=== PATIENT | female | born 2000 | race Caucasian/White ===

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

== ENCOUNTER → 2024-02-09 | Outpatient (CLI) | payer OTHER | END | disposition home or self-care (01) | LOC: LAB 10:40 → LAB SHORT 10:40 | DX: Z34.83 Encounter for supervision of other normal pregnancy, third trimester (principal); Z3A.36 36 weeks gestation of pregnancy | CPT/HCPCS: 87081; 87150 ==

== ENCOUNTER 2024-02-22 17:25 | Inpatient (IN) | payer OTHER ==
[~2024-02-22] VITALS: Ht 157.5 cm; Wt 68.0 kg
[2024-02-22] VITALS (10 sets, daily range): BP systolic 122–152; BP diastolic 66–116
[2024-02-22] MEDS ORDERED: Misoprostol 200 MCG Tab PR PRN ×2 (17:50→19:25)
[2024-02-22] MEDS ORDERED: Tranexamic Acid 100 ML IV SCH (17:50)
[2024-02-22] MEDS ORDERED: Methylergonovine Maleate 0.2MG / ML 1ML Amp IM PRN ×2 (17:50→19:35)
[2024-02-22] MEDS ORDERED: Oxytocin 10 Unit / ML Vial IM PRN (17:50)
[2024-02-22] MEDS ORDERED: Acetaminophen 500 MG Tab PO PRN (17:50)
[2024-02-22] MEDS ORDERED: Calcium Carbonate 500 MG Tab Chew PO PRN (17:50)
[2024-02-22] MEDS ORDERED: Misoprostol 200 MCG Tab BC PRN (17:50)
[2024-02-22] MEDS ORDERED: OXYTOCIN/RINGER'S LACTATE 500 ML IV PRN (17:50)
[2024-02-22] MEDS ORDERED: Lactated Ringer's 1,000 ML IV PRN (17:50)
[2024-02-22] MEDS ORDERED: Ondansetron HCl 2 MG / ML 2ML Vial IV PRN (17:50)
[2024-02-22] MEDS ORDERED: Carboprost Tromethamine 250 MCG/ML 1ML Amp IM PRN ×2 (17:50→19:30)
[2024-02-22] MEDS ORDERED: Lactated Ringer's 1,000 ML IV ONE (17:50)
[2024-02-22] MEDS ORDERED: OXYTOCIN/RINGER'S LACTATE 500 ML IV ONE (17:50)
[2024-02-22] MEDS ORDERED: Methylergonovine Maleate 0.2MG / ML 1ML Amp ONE (17:51)
[2024-02-22] MEDS ORDERED: PRENATAL TABLE1 EAC2 PO (18:16)
[2024-02-22] MEDS ORDERED: SERT25 PO (18:17)
[2024-02-22 18:20] LABS: BASOPHILS ABSOLUTE AUTO 0.02 K/mm3 (0.00-0.23); BASOPHILS PERCENT AUTO 0 % (0-2); EOSINOPHILS PERCENT AUTO 0 % (0-6); Hematocrit 32.8 % (33.0-51.0); Hemoglobin 10.9 g/dL (11.5-16.0); IMMATURE GRAN PERCENT AUTO 1 % (0-1); LYMPHOCYTES ABSOLUTE AUTO 1.12 K/mm3 (0.84-5.20); LYMPHOCYTES PERCENT AUTO 7 % (21-46); MONOCYTES ABSOLUTE AUTO 0.59 K/mm3 (0.16-1.47); MONOCYTES PERCENT AUTO 4 % (4-13); Mean Corpuscular HGB 28.6 pg (26.0-34.0); Mean Corpuscular HGB Conc 33.2 g/dL (31.5-36.5); Mean Corpuscular Volume 86 fL (80-100); NEUTROPHILS ABSOLUTE AUTO 13.54 K/mm3 (1.96-9.15); NEUTROPHILS PERCENT AUTO 88 % (41-73); Platelet Count 189 K/mm3 (150-400); RDW Coefficient Variation 13.5 % (11.7-14.2); RDW Standard Deviation 41.3 fL (35.1-46.3); Red Blood Cell Count 3.81 M/mm3 (3.80-5.20); White Blood Cell Count 15.47 K/mm3 (4.00-11.30)
[2024-02-22] MEDS ORDERED: Acetaminophen 325 MG TABLET PO PRN (19:25)
[2024-02-22] MEDS ORDERED: OxyCODONE 5 mg/Acetamin 325 mg TABLET PO PRN (19:25)
[2024-02-22] MEDS ORDERED: Benzocaine Topical Anesthetic Spray 60GM TOP PRN (19:30)
[2024-02-22] MEDS ORDERED: Witch Hazel/Glycerin PADS TOP PRN (19:30)
[2024-02-22] MEDS ORDERED: Ibuprofen 400 MG Tab PO PRN (19:30)
[2024-02-22] MEDS ORDERED: Lactated Ringer's 1,000 ML IV SCH (19:30)
[2024-02-22] MEDS ORDERED: Docusate Sodium 100 MG Cap PO PRN (19:30)
[2024-02-22] MEDS ORDERED: FLU VACC TS2024-25(6MOS UP)/PF 45 MCG/0.5 ML SYRINGE IM ONE (19:30)
[2024-02-22] MEDS ORDERED: Misoprostol 100 MCG Tab PO PRN (19:35)
[2024-02-22] MEDS ORDERED: Ketorolac Tromethamine 30mg Vial IV PRN (19:50)
[2024-02-22] MEDS ORDERED: Bupivacaine 0.5% HCl 5 MG/ML 30MLVIAL XX ONE (22:12)
[2024-02-22] MEDS ORDERED: FERSU300 PO (22:26)
[2024-02-23 00:08] VITALS: BP 116/68
[2024-02-23 04:00] VITALS: BP 127/83
[2024-02-23 05:38] LABS: BASOPHILS ABSOLUTE AUTO 0.02 K/mm3 (0.00-0.23); BASOPHILS PERCENT AUTO 0 % (0-2); EOSINOPHILS PERCENT AUTO 0 % (0-6); Hematocrit 30.4 % (33.0-51.0); IMMATURE GRAN ABSOLUTE AUTO 0.09 K/mm3 (0.00-0.10); IMMATURE GRAN PERCENT AUTO 1 % (0-1); LYMPHOCYTES ABSOLUTE AUTO 1.33 K/mm3 (0.84-5.20); LYMPHOCYTES PERCENT AUTO 10 % (21-46); MONOCYTES ABSOLUTE AUTO 1.09 K/mm3 (0.16-1.47); MONOCYTES PERCENT AUTO 8 % (4-13); Mean Corpuscular HGB 28.2 pg (26.0-34.0); Mean Corpuscular HGB Conc 32.9 g/dL (31.5-36.5); Mean Corpuscular Volume 86 fL (80-100); Mean Platelet Volume 12.1 fL (9.1-12.4); NEUTROPHILS ABSOLUTE AUTO 11.08 K/mm3 (1.96-9.15); NEUTROPHILS PERCENT AUTO 81 % (41-73); Platelet Count 209 K/mm3 (150-400); RDW Coefficient Variation 13.4 % (11.7-14.2); RDW Standard Deviation 41.3 fL (35.1-46.3); Red Blood Cell Count 3.55 M/mm3 (3.80-5.20); White Blood Cell Count 13.61 K/mm3 (4.00-11.30)
[2024-02-23 08:19] VITALS: BP 124/85
--- NOTE | 2024-02-23 08:25 | NUR ---
REPORT TAKEN ASSUMED CARE
[2024-02-23] MEDS ORDERED: Prenatal Vit/FE Fumarate/FA 1 Tab PO SCH (09:00)
--- NOTE | 2024-02-23 09:45 | NUR ---
TOWELS GIVEN, OFFERED WATER, PT TO CALL WHEN READY TO GET IN SHOWER FOR LINEN CHANGE - TOWELS GIVEN FOR PT AND S.O. - EXPLAINED ORDERING LUNCH - NO PATIENT PHONE - REPLACED WITH NEW PHONE AND VERIFIED WORKING - PT DENIED ANY NEEDS AT THIS TIME
--- NOTE | 2024-02-23 10:50 | NUR ---
REPORT GIVEN TO BRICE CARVER RN
[2024-02-23 11:22] VITALS: BP 122/69
--- NOTE | 2024-02-23 11:36 | NUR ---
PT HAS EPDS SCORE OF 14, WITH A [address] GOLDBERG NOTIFIED, NO NEW ORDERS RECEIVED. [facility] CONSULT PLACED. ANABELLE FROM [facility] CALLED AND NOTIFIED. IS PLANNING TO CONSULT BETWEEN [phone] BEFORE DISCHARGE.
--- NOTE | 2024-02-23 12:44 | NUR ---
PT AND [employer] BOTH EDUCATED ON PURPOSE AND NEED FOR DOSE OF RHOGHAM . EDUCATED ON BLOOD TYPES. EDUCATED ON WHY IT WAS GIVEN INTRAPARTUM (PT NOT AWARE IT WAS A BLOOD PRODUCT). PT EDUCATED ON WHY IT IS NEEDED . REQUESTED DR. GOLDBERG CONSULT AND EDUCATE PT AND ON RHOGHAM WELL. DR. GOLDBERG HERE TO CONSULT AND EDUCATE PT AND . PT IS CONSIDERING HER OPTIONS WITH HER .
[2024-02-23] MEDS ORDERED: Rho(D) Immune Globulin 300 MCG / SYR IM ONE (19:45)
[2024-02-23 20:04] VITALS: BP 126/79
== END 2024-02-23 20:40 | disposition home or self-care (01) | DRG 806 ==
LOC: OBS 17:25 → BC 17:25 → OBS 17:42 → BC 02-23 12:25
PROVIDERS: ADMIT Family Medicine
PROC: 10E0XZZ Delivery of Products of Conception, External Approach (ICD-10-PCS; principal; 2024-02-22)
PROC: 0KQM0ZZ Repair Perineum Muscle, Open Approach (ICD-10-PCS; 2024-02-22)
DX: O99.344 Other mental disorders complicating childbirth (principal); O71.4 Obstetric high vaginal laceration alone; Z37.0 Single live birth; F41.8 Other specified anxiety disorders; O69.81X0 Labor and delivery complicated by cord around neck, without compression, not applicable or unspecified; Z79.899 Other long term (current) drug therapy; Z3A.39 39 weeks gestation of pregnancy
CPT/HCPCS: 36415; 59025; 85025; 85460; 86850; 86870; 86900; 86901; 99214; A9270; J1885; J2590; J2791

== ENCOUNTER → 2024-04-04 | Outpatient (CLI) | payer OTHER ==
[~2024-04-04] MED LIST: FERSU300 PO; PRENATAL TABLE1 EAC2 PO; SERT25 PO
== END | disposition home or self-care (01) ==
LOC: LAB SHORT 18:21 → LAB 18:21
PROVIDERS: Family Medicine
DX: Z12.4 Encounter for screening for malignant neoplasm of cervix (principal)
CPT/HCPCS: G0123

== ENCOUNTER → 2024-08-23 | Outpatient (CLI) | payer OTHER | LOC: LAB 17:55 → LAB SHORT 17:55 | PROVIDERS: Family Medicine | DX: Z12.4 Encounter for screening for malignant neoplasm of cervix (principal) | CPT/HCPCS: G0123 ==

== ENCOUNTER 2025-05-22 13:32 | Emergency (ER) | payer OTHER ==
[~2025-05-22] VITALS: Ht 157.5 cm; Wt 49.9 kg
[2025-05-22 14:20] LABS: BASOPHILS ABSOLUTE AUTO 0.04 K/mm3 (0.00-0.23); BASOPHILS PERCENT AUTO 1 % (0-2); EOSINOPHILS ABSOLUTE AUTO 0.09 K/mm3 (0.00-0.68); EOSINOPHILS PERCENT AUTO 2 % (0-6); Hematocrit 39.5 % (33.0-51.0); Hemoglobin 13.7 g/dL (11.5-16.0); IMMATURE GRAN ABSOLUTE AUTO 0.05 K/mm3 (0.00-0.10); IMMATURE GRAN PERCENT AUTO 1 % (0-1); LYMPHOCYTES ABSOLUTE AUTO 2.09 K/mm3 (0.84-5.20); LYMPHOCYTES PERCENT AUTO 37 % (21-46); MONOCYTES ABSOLUTE AUTO 0.33 K/mm3 (0.16-1.47); MONOCYTES PERCENT AUTO 6 % (4-13); Mean Corpuscular HGB Conc 34.7 g/dL (31.5-36.5); Mean Corpuscular Volume 85 fL (80-100); NEUTROPHILS ABSOLUTE AUTO 3.09 K/mm3 (1.96-9.15); NEUTROPHILS PERCENT AUTO 54 % (41-73); NRBC ABSOLUTE 0.02 K/mm3 (0.00-0.02); NRBC Auto 0.4 /100 WBC (0.0-0.2); RDW Coefficient Variation 12.3 % (11.7-14.2); RDW Standard Deviation 37.9 fL (35.1-46.3)
[2025-05-22 14:33] LABS: Alanine Aminotransfer (ALT/SGP 37.0 U/L (12-78); Albumin, Blood 4.1 g/dL (3.4-5.0); Albumin/Globulin Ratio 1.1 (0.8-1.8); Anion Gap 6.0 mmol/L (3-11); Aspartate Aminotrans (AST/SGOT 25.0 U/L (12-37); Bilirubin, Total 0.4 mg/dL (0.1-1.0); Blood Urea Nitrogen 17.0 mg/dL (8-24); CO2, Blood 22.0 mmol/L (21-32); Calcium, Blood 9.1 mg/dL (8.5-10.1); Chloride, Blood 110.0 mmol/L (98-108); Creatinine, Blood 0.71 mg/dL (0.40-1.00); Globulin, Blood 3.6 g/dL (2.2-4.0); Glucose, Blood 78.0 mg/dL (70-99); Potassium, Blood 3.9 mmol/L (3.5-5.5); Sodium, Blood 134.0 mmol/L (136-145); Total Protein, Blood 7.7 g/dL (6.4-8.2)
[2025-05-22 18:00] VITALS: BP 110/70
[2025-05-22] MEDS ORDERED: Lidocaine 4% 1 Patch TOP ONE (18:40)
[2025-05-22] MEDS ORDERED: Ketorolac Tromethamine 15mg Vial IV ONE (18:40)
== END 2025-05-22 19:00 | disposition home or self-care (01) ==
LOC: ER 13:32
PROVIDERS: Student in an Organized Health Care Education/Training Program
DX: G43.909 Migraine, unspecified, not intractable, without status migrainosus (principal); Z79.899 Other long term (current) drug therapy
CPT/HCPCS: 80053; 84703; 85025; 96374; 99284-25; A9270; J1885